=== PATIENT | female | born 1975 | race Caucasian/White ===

== ENCOUNTER 2019-11-06 14:29 | Inpatient (IN) ==
[2019-11-06] MEDS ORDERED: ALBUTEROL/IPRATROPIUM 3 ML NEB RESP TX STA (15:28)
[2019-11-06 15:39] LABS: Basophils # 0.1 10*3/uL (0.0-0.2); Basophils % 0.9 % (0.0-0.8); Eosinophils # 0.1 10*3/uL (0.0-0.87); Eosinophils % 1.3 % (0.00-10.9); Hematocrit 42.9 VOL% (35.7-47.0); Hemoglobin 14.8 GM/DL (12.0-16.0); Immature Granulocytes % 0.4 %; Immature Granulocytes Absolute 0.02 #; Lymphocytes # 1.7 10*3/uL (1.4-4.0); Mean Corpuscular HGB Conc 34.5 GM/DL (32-36); Mean Platelet Volume 8.4 FL (9.6-12.0); Neutrophils % 57.4 % (38.7-73.9); Platelet Count 261 T/CUMM (130-400); Red Blood Count 4.99 MC/CUMM (3.8-5.5); Red Cell Distribution Width 11.6 % (9.3-17.3); White Blood Count 5.3 T/CUMM (4-12)
[2019-11-06 15:47] LABS: Albumin 4.4 G/DL (3.4-5.0); Bilirubin,Total 0.8 MG/DL (0.2-1.0); Calcium 8.8 MG/DL (8.5-10.1); Osmolality,Calculated 269.8 MOS/KG (273-304); Total Protein 7.8 G/DL (6.4-8.3)
[2019-11-06] MEDS ORDERED: DEXTROSE 50% 25 GM/50 ML VIAL IV PRN (18:32)
[2019-11-06] MEDS: IPRATROPIUM 500 MCG/2.5 ML NEB RESP TX SCH ×2 (19:52→23:32)
[2019-11-06] MEDS: LEVALBUTEROL 1.25 MG/3 ML NEB RESP TX SCH ×2 (19:52→23:32)
[2019-11-06] MEDS: RACEPINEPHRINE 0.5 ML NEB RESP TX SCH ×2 (19:52→23:32)
[2019-11-06] MEDS ORDERED: GLUCAGON 1 MG VIAL IM PRN (20:00)
[2019-11-06] MEDS ORDERED: MAGNESIUM SULF RIDER 2 GM in PREMIX 1 EACH IV ONE (20:00)
[2019-11-06] MEDS: methylPREDNISolone SOD SUC 40 MG/1 ML VIAL IV SCH (21:49)
[2019-11-06] MEDS: ENOXAPARIN 40 MG/0.4 ML SYRINGE SUBCUT SCH (21:49)
[2019-11-06] MEDS: cefTRIAXone 2,000 MG in SYRINGE 1 EACH IV SCH (21:49)
[2019-11-06] MEDS: CLINDAMYCIN INJ 600 MG in PREMIX 1 EACH IV SCH (21:50)
[2019-11-07] MEDS: RACEPINEPHRINE 0.5 ML NEB RESP TX SCH ×6 (03:26→23:50)
[2019-11-07] MEDS: IPRATROPIUM 500 MCG/2.5 ML NEB RESP TX SCH ×6 (03:26→23:50)
[2019-11-07] MEDS: LEVALBUTEROL 1.25 MG/3 ML NEB RESP TX SCH ×6 (03:26→23:50)
[2019-11-07] MEDS: CLINDAMYCIN INJ 600 MG in PREMIX 1 EACH IV SCH (05:00)
[2019-11-07] MEDS: methylPREDNISolone SOD SUC 40 MG/1 ML VIAL IV SCH ×3 (05:00→21:02)
[2019-11-07] MEDS: tiZANidine 4 MG TABLET PO PRN ×3 (06:28→23:13)
[2019-11-07] MEDS: PANTOPRAZOLE 40 MG VIAL IV SCH (09:01)
[2019-11-07] MEDS: cefTRIAXone 2,000 MG in SYRINGE 1 EACH IV SCH (21:02)
[2019-11-07] MEDS: ENOXAPARIN 40 MG/0.4 ML SYRINGE SUBCUT SCH (21:03)
[2019-11-07] MEDS: FLUTICASONE 220 MCG/PUFF INHALER 12 GM INH SCH (21:03)
[2019-11-07] MEDS: fentaNYL 25 MCG/HR PATCH TRANSDERM SCH (21:10)
[2019-11-07] MEDS: oxyCODONE/ACETAMINOPHEN 5-325 MG TABLET PO PRN (21:18)
[2019-11-08] MEDS: IPRATROPIUM 500 MCG/2.5 ML NEB RESP TX SCH ×5 (03:41→19:35)
[2019-11-08] MEDS: RACEPINEPHRINE 0.5 ML NEB RESP TX SCH ×3 (03:41→10:38)
[2019-11-08] MEDS: LEVALBUTEROL 1.25 MG/3 ML NEB RESP TX SCH ×5 (03:42→19:35)
[2019-11-08] MEDS: methylPREDNISolone SOD SUC 40 MG/1 ML VIAL IV SCH ×3 (04:07→20:13)
[2019-11-08] MEDS: PANTOPRAZOLE 40 MG VIAL IV SCH (09:39)
[2019-11-08] MEDS: FLUTICASONE 220 MCG/PUFF INHALER 12 GM INH SCH ×2 (09:41→20:15)
[2019-11-08] MEDS: oxyCODONE/ACETAMINOPHEN 5-325 MG TABLET PO PRN ×2 (12:15→20:22)
[2019-11-08] MEDS: cefTRIAXone 2,000 MG in SYRINGE 1 EACH IV SCH (20:13)
[2019-11-08] MEDS: ENOXAPARIN 40 MG/0.4 ML SYRINGE SUBCUT SCH (20:14)
[2019-11-08] MEDS: tiZANidine 4 MG TABLET PO PRN (20:22)
[2019-11-09] MEDS: LEVALBUTEROL 1.25 MG/3 ML NEB RESP TX SCH ×6 (00:48→20:45)
[2019-11-09] MEDS: IPRATROPIUM 500 MCG/2.5 ML NEB RESP TX SCH ×6 (00:48→20:45)
[2019-11-09] MEDS: methylPREDNISolone SOD SUC 40 MG/1 ML VIAL IV SCH ×3 (04:06→20:26)
[2019-11-09] MEDS: PANTOPRAZOLE 40 MG VIAL IV SCH (08:27)
[2019-11-09] MEDS: FLUTICASONE 220 MCG/PUFF INHALER 12 GM INH SCH ×2 (08:31→20:45)
[2019-11-09] MEDS: oxyCODONE/ACETAMINOPHEN 5-325 MG TABLET PO PRN (18:00)
[2019-11-09] MEDS: cefTRIAXone 2,000 MG in SYRINGE 1 EACH IV SCH (20:25)
[2019-11-09] MEDS: tiZANidine 4 MG TABLET PO PRN (20:27)
[2019-11-10] MEDS: IPRATROPIUM 500 MCG/2.5 ML NEB RESP TX SCH ×7 (00:58→23:34)
[2019-11-10] MEDS: LEVALBUTEROL 1.25 MG/3 ML NEB RESP TX SCH ×7 (00:58→23:30)
[2019-11-10] MEDS: methylPREDNISolone SOD SUC 40 MG/1 ML VIAL IV SCH ×3 (03:28→20:32)
[2019-11-10] MEDS: fentaNYL 25 MCG/HR PATCH TRANSDERM SCH (09:18)
[2019-11-10] MEDS: PANTOPRAZOLE 40 MG VIAL IV SCH (09:19)
[2019-11-10] MEDS: FLUTICASONE 220 MCG/PUFF INHALER 12 GM INH SCH ×2 (09:25→20:37)
[2019-11-10] MEDS ORDERED: BENZOCAINE 20% SPRAY 57 GM CAN TOP ONE (11:32)
[2019-11-10] MEDS ORDERED: LIDOCAINE/EPINEPHR/TETRACAINE 3 ML SYRINGE TOP ONE (12:00)
[2019-11-10] MEDS: oxyCODONE/ACETAMINOPHEN 5-325 MG TABLET PO PRN (18:15)
[2019-11-10] MEDS: cefTRIAXone 2,000 MG in SYRINGE 1 EACH IV SCH (20:32)
[2019-11-10] MEDS: tiZANidine 4 MG TABLET PO PRN (20:32)
[2019-11-11] MEDS: IPRATROPIUM 500 MCG/2.5 ML NEB RESP TX SCH ×5 (03:07→19:44)
[2019-11-11] MEDS: LEVALBUTEROL 1.25 MG/3 ML NEB RESP TX SCH ×5 (03:07→19:44)
[2019-11-11] MEDS: methylPREDNISolone SOD SUC 40 MG/1 ML VIAL IV SCH ×3 (04:27→20:50)
[2019-11-11] MEDS: FLUTICASONE 220 MCG/PUFF INHALER 12 GM INH SCH (08:31)
[2019-11-11] MEDS: PANTOPRAZOLE 40 MG VIAL IV SCH (08:32)
[2019-11-11] MEDS ORDERED: LEVALBUTEROL 1.25 MG/3 ML NEB RESP TX PRN (09:37)
[2019-11-11] MEDS: tiZANidine 4 MG TABLET PO PRN ×2 (13:50→22:07)
[2019-11-11] MEDS: oxyCODONE/ACETAMINOPHEN 5-325 MG TABLET PO PRN (13:50)
[2019-11-11] MEDS: cefTRIAXone 2,000 MG in SYRINGE 1 EACH IV SCH (20:55)
[2019-11-12] MEDS: IPRATROPIUM 500 MCG/2.5 ML NEB RESP TX SCH ×7 (00:02→23:30)
[2019-11-12] MEDS: LEVALBUTEROL 1.25 MG/3 ML NEB RESP TX SCH ×7 (00:02→23:30)
[2019-11-12] MEDS: methylPREDNISolone SOD SUC 40 MG/1 ML VIAL IV SCH ×3 (03:22→20:32)
[2019-11-12 05:31] LABS: Basophils % 0.3 % (0.0-0.8); Hematocrit 41.8 VOL% (35.7-47.0); Hemoglobin 13.9 GM/DL (12.0-16.0); Immature Granulocytes % 4.9 %; Immature Granulocytes Absolute 0.63 #; Lymphocytes % 7.6 % (21.3-54.2); Mean Corpuscular HGB Conc 33.3 GM/DL (32-36); Mean Corpuscular Volume 88.4 FL (87-102); Mean Platelet Volume 8.3 FL (9.6-12.0); Monocytes % 4.2 % (1.7-12.7); Platelet Count 254 T/CUMM (130-400); Red Blood Count 4.73 MC/CUMM (3.8-5.5); Red Cell Distribution Width 11.3 % (9.3-17.3); White Blood Count 12.8 T/CUMM (4-12)
[2019-11-12 05:55] LABS: Lymphocytes 11 % (20-55); Platelet Estimate Adequate; Segmented Neutrophils 86 % (50-85); Total Cells Counted 100
[2019-11-12 05:56] LABS: Hypochromasia 1+; Microcytosis 1+
[2019-11-12 06:01] LABS: Calcium 8.6 MG/DL (8.5-10.1); Osmolality,Calculated 270.2 MOS/KG (273-304)
[2019-11-12] MEDS: PANTOPRAZOLE 40 MG VIAL IV SCH (08:20)
[2019-11-12] MEDS: oxyCODONE/ACETAMINOPHEN 5-325 MG TABLET PO PRN ×2 (08:21→20:31)
[2019-11-12] MEDS: FLUTICASONE 220 MCG/PUFF INHALER 12 GM INH SCH ×2 (08:28)
[2019-11-12] MEDS: tiZANidine 4 MG TABLET PO PRN ×2 (12:00→20:32)
[2019-11-12] MEDS: cefTRIAXone 2,000 MG in SYRINGE 1 EACH IV SCH (20:37)
[2019-11-13] MEDS: LEVALBUTEROL 1.25 MG/3 ML NEB RESP TX SCH ×6 (04:00→23:23)
[2019-11-13] MEDS: IPRATROPIUM 500 MCG/2.5 ML NEB RESP TX SCH ×4 (04:00→13:58)
[2019-11-13] MEDS: methylPREDNISolone SOD SUC 40 MG/1 ML VIAL IV SCH ×3 (04:01→20:18)
[2019-11-13] MEDS: PANTOPRAZOLE 40 MG VIAL IV SCH (08:23)
[2019-11-13] MEDS: fentaNYL 25 MCG/HR PATCH TRANSDERM SCH (08:23)
[2019-11-13] MEDS ORDERED: FLUTICASONE 220 MCG/PUFF INHALER 12 GM INH SCH ×2 (08:39→09:00)
[2019-11-13] MEDS: FLUTICASONE 220 MCG/PUFF INHALER 12 GM INH SCH (08:51)
[2019-11-13] MEDS: oxyCODONE/ACETAMINOPHEN 5-325 MG TABLET PO PRN ×2 (09:37→20:28)
[2019-11-13] MEDS: tiZANidine 4 MG TABLET PO PRN ×2 (09:46→20:28)
[2019-11-13] MEDS ORDERED: MAGNESIUM HYDROXIDE SUSP 30 ML UDCUP PO PRN (12:31)
[2019-11-13] MEDS: POLYETHYLENE GLYCOL POWDER 17 GM PACK PO SCH (13:51)
[2019-11-13] MEDS: DOCUSATE SODIUM 100 MG CAPSULE PO SCH ×2 (13:51→20:18)
[2019-11-13] MEDS: MONTELUKAST 10 MG TABLET PO SCH (17:06)
[2019-11-13] MEDS: BUDESONIDE/FORMOTEROL 160-4.5 INHALER 6 GM INH SCH ×2 (20:20→20:28)
[2019-11-14] MEDS: LEVALBUTEROL 1.25 MG/3 ML NEB RESP TX SCH ×6 (03:45→23:50)
[2019-11-14] MEDS: MONTELUKAST 10 MG TABLET PO SCH (09:05)
[2019-11-14] MEDS: BUDESONIDE/FORMOTEROL 160-4.5 INHALER 6 GM INH SCH ×2 (09:05→20:58)
[2019-11-14] MEDS: tiZANidine 4 MG TABLET PO PRN ×2 (09:05→20:56)
[2019-11-14] MEDS: PANTOPRAZOLE 40 MG VIAL IV SCH (09:05)
[2019-11-14] MEDS: oxyCODONE/ACETAMINOPHEN 5-325 MG TABLET PO PRN ×2 (09:05→20:57)
[2019-11-14] MEDS: DOCUSATE SODIUM 100 MG CAPSULE PO SCH ×2 (09:05→20:56)
[2019-11-14] MEDS: POLYETHYLENE GLYCOL POWDER 17 GM PACK PO SCH (09:05)
[2019-11-14] MEDS: methylPREDNISolone SOD SUC 40 MG/1 ML VIAL IV SCH ×2 (09:07→20:56)
[2019-11-14] MEDS ORDERED: LACTULOSE 20 GM/30 ML UDCUP PO ONE (12:03)
[2019-11-15] MEDS: LEVALBUTEROL 1.25 MG/3 ML NEB RESP TX SCH ×3 (03:40→11:58)
[2019-11-15] MEDS: POLYETHYLENE GLYCOL POWDER 17 GM PACK PO SCH (09:35)
[2019-11-15] MEDS: MONTELUKAST 10 MG TABLET PO SCH (09:35)
[2019-11-15] MEDS: DOCUSATE SODIUM 100 MG CAPSULE PO SCH (09:35)
[2019-11-15] MEDS: BUDESONIDE/FORMOTEROL 160-4.5 INHALER 6 GM INH SCH (09:36)
[2019-11-15] MEDS: methylPREDNISolone SOD SUC 40 MG/1 ML VIAL IV SCH (09:36)
[2019-11-15] MEDS ORDERED: ACETAMINOPHEN 325 MG TABLET PO PRN (09:51)
[2019-11-15 11:41] VITALS: BP 136/95
== END 2019-11-15 14:39 | disposition home or self-care (01) | DRG 202 ==
LOC: N.ED 14:29 → N.EDINP 14:29 → N.TELEN 20:49 → N.4E 11-11 13:30
PROVIDERS: ADMIT Internal Medicine; ATTEND Internal Medicine

== ENCOUNTER 2019-12-09 16:26 | Inpatient (IN) ==
[2019-12-09] MEDS ORDERED: methylPREDNISolone SOD SUC 125 MG/2 ML VIAL IV STA (17:08)
[2019-12-09] MEDS ORDERED: ALBUTEROL 2.5 MG/3 ML NEB RESP TX STA (17:08)
[2019-12-09 17:29] LABS: Basophils % 0.8 % (0.0-0.8); Eosinophils # 0.1 10*3/uL (0.0-0.87); Eosinophils % 1.2 % (0.00-10.9); Hematocrit 39.6 VOL% (35.7-47.0); Hemoglobin 13.5 GM/DL (12.0-16.0); Immature Granulocytes % 0.4 %; Immature Granulocytes Absolute 0.02 #; Lymphocytes # 1.2 10*3/uL (1.4-4.0); Lymphocytes % 23.8 % (21.3-54.2); Mean Corpuscular HGB Conc 34.1 GM/DL (32-36); Mean Corpuscular Volume 87.2 FL (87-102); Mean Platelet Volume 8.1 FL (9.6-12.0); Monocytes % 6.9 % (1.7-12.7); Neutrophils % 66.9 % (38.7-73.9); Platelet Count 239 T/CUMM (130-400); Red Blood Count 4.54 MC/CUMM (3.8-5.5); Red Cell Distribution Width 11.9 % (9.3-17.3); White Blood Count 5.2 T/CUMM (4-12)
[2019-12-09 17:47] LABS: Calcium 8.8 MG/DL (8.5-10.1); Osmolality,Calculated 275.4 MOS/KG (273-304)
[2019-12-09] MEDS ORDERED: LORazepam 2 MG/1 ML VIAL IV STA ×2 (18:20→19:08)
[2019-12-09] MEDS ORDERED: LORazepam 2 MG/1 ML VIAL ONE (18:22)
[2019-12-09] MEDS ORDERED: LACTATED RINGERS 1,000 ML IV ONE (18:27)
[2019-12-09] MEDS ORDERED: METOPROLOL TARTRATE 5 MG/5 ML VIAL IV STA (19:28)
[2019-12-09] MEDS ORDERED: METOPROLOL TARTRATE 25 MG TABLET PO STA (19:32)
[2019-12-09] MEDS ORDERED: POTASSIUM CHLORIDE 20 MEQ TABLET PO STA (19:54)
[2019-12-09] MEDS ORDERED: MAGNESIUM SULF RIDER 2 GM in PREMIX 1 EACH IV ONE (20:54)
[2019-12-09] MEDS ORDERED: tiZANidine 4 MG TABLET PO PRN (20:56)
[2019-12-09] MEDS ORDERED: Dextroamphetamine-Amphetamine 30 MG PO PRN (20:56)
[2019-12-09] MEDS ORDERED: POLYETHYLENE GLYCOL POWDER 17 GM PACK PO PRN (20:56)
[2019-12-09] MEDS ORDERED: ACETAMINOPHEN 325 MG TABLET PO PRN (21:02)
[2019-12-09] MEDS ORDERED: MAGNESIUM SULF RIDER 2 GM in PREMIX 1 EACH IV PRN (21:06)
[2019-12-09] MEDS ORDERED: MAGNESIUM SULF RIDER 4 GM in PREMIX 1 EACH IV PRN (21:06)
[2019-12-09] MEDS ORDERED: POTASSIUM CHLORIDE 20 MEQ TABLET PO PRN (21:06)
[2019-12-09] MEDS: ONDANSETRON 4 MG/2 ML VIAL IV PRN (23:55)
[2019-12-09] MEDS: oxyCODONE/ACETAMINOPHEN 5-325 MG TABLET PO PRN (23:55)
[2019-12-10] MEDS: SODIUM CHLORIDE 0.9% 1,000 ML IV SCH ×2 (00:21→12:35)
[2019-12-10] MEDS: methylPREDNISolone SOD SUC 125 MG/2 ML VIAL IV SCH ×3 (00:23→12:35)
[2019-12-10] MEDS: FAMOTIDINE 20 MG TABLET PO SCH (00:24)
[2019-12-10] MEDS: MONTELUKAST 10 MG TABLET PO SCH (00:24)
[2019-12-10] MEDS: BUDESONIDE/FORMOTEROL 160-4.5 INHALER 6 GM INH SCH ×2 (00:28→12:35)
[2019-12-10] MEDS: ENOXAPARIN 40 MG/0.4 ML SYRINGE SUBCUT SCH ×2 (00:28→23:31)
[2019-12-10] MEDS: DOCUSATE SODIUM 100 MG CAPSULE PO SCH ×2 (00:29→09:06)
[2019-12-10] MEDS: LEVALBUTEROL 1.25 MG/3 ML NEB RESP TX SCH ×6 (00:30→23:00)
[2019-12-10 06:00] LABS: Hematocrit 36.3 VOL% (35.7-47.0); Hemoglobin 12.3 GM/DL (12.0-16.0); Immature Granulocytes % 0.6 %; Immature Granulocytes Absolute 0.03 #; Lymphocytes # 0.3 10*3/uL (1.4-4.0); Lymphocytes % 5.9 % (21.3-54.2); Mean Corpuscular HGB Conc 33.9 GM/DL (32-36); Mean Corpuscular Volume 88.5 FL (87-102); Mean Platelet Volume 8.3 FL (9.6-12.0); Monocytes % 1.1 % (1.7-12.7); Neutrophils % 92.4 % (38.7-73.9); Platelet Count 189 T/CUMM (130-400); White Blood Count 5.2 T/CUMM (4-12)
[2019-12-10 06:22] LABS: Calcium 8.5 MG/DL (8.5-10.1); Osmolality,Calculated 279.4 MOS/KG (273-304)
[2019-12-10 06:33] LABS: Lymphocytes 11 % (20-55); Segmented Neutrophils 87 % (50-85); Total Cells Counted 100
[2019-12-10 06:34] LABS: Hypochromasia 1+; Microcytosis 1+; Ovalocytes Slight; Platelet Estimate Adequate
[2019-12-10] MEDS ORDERED: VILAZODONE 10 MG PO SCH (09:00)
[2019-12-10] MEDS: oxyCODONE/ACETAMINOPHEN 5-325 MG TABLET PO PRN ×2 (11:31→20:37)
[2019-12-10] MEDS: ONDANSETRON 4 MG/2 ML VIAL IV PRN ×3 (14:25→20:37)
[2019-12-10] MEDS ORDERED: PROMETHAZINE 25 MG TABLET PO ONE (17:11)
[2019-12-10] MEDS: KETOROLAC 30 MG/1 ML VIAL IV PRN (23:58)
[2019-12-11] MEDS: MONTELUKAST 10 MG TABLET PO SCH ×2 (00:17→20:54)
[2019-12-11] MEDS: FAMOTIDINE 20 MG TABLET PO SCH ×2 (00:17→20:54)
[2019-12-11] MEDS: DOCUSATE SODIUM 100 MG CAPSULE PO SCH ×4 (00:17→20:56)
[2019-12-11] MEDS: BUDESONIDE/FORMOTEROL 160-4.5 INHALER 6 GM INH SCH ×3 (00:18→23:54)
[2019-12-11] MEDS ORDERED: methylPREDNISolone SOD SUC 125 MG/2 ML VIAL IV SCH (00:30)
[2019-12-11] MEDS: ONDANSETRON 4 MG/2 ML VIAL IV PRN ×2 (00:42→19:30)
[2019-12-11] MEDS: SODIUM CHLORIDE 0.9% 1,000 ML IV SCH ×2 (00:43→14:39)
[2019-12-11 04:53] LABS: Basophils % 0.2 % (0.0-0.8); Hematocrit 35.1 VOL% (35.7-47.0); Hemoglobin 12.1 GM/DL (12.0-16.0); Immature Granulocytes % 0.6 %; Immature Granulocytes Absolute 0.07 #; Lymphocytes # 0.5 10*3/uL (1.4-4.0); Lymphocytes % 4.4 % (21.3-54.2); Mean Corpuscular HGB Conc 34.5 GM/DL (32-36); Mean Corpuscular Volume 88.9 FL (87-102); Mean Platelet Volume 8.5 FL (9.6-12.0); Monocytes % 2.6 % (1.7-12.7); Neutrophils % 92.2 % (38.7-73.9); Platelet Count 215 T/CUMM (130-400); Red Blood Count 3.95 MC/CUMM (3.8-5.5); Red Cell Distribution Width 12.4 % (9.3-17.3); White Blood Count 10.9 T/CUMM (4-12)
[2019-12-11 05:16] LABS: Hypochromasia 1+; Lymphocytes 8 % (20-55); Microcytosis 1+; Platelet Estimate Adequate; Segmented Neutrophils 90 % (50-85); Total Cells Counted 100
[2019-12-11 05:49] LABS: Calcium 8.1 MG/DL (8.5-10.1); Osmolality,Calculated 277.4 MOS/KG (273-304)
[2019-12-11] MEDS: LEVALBUTEROL 1.25 MG/3 ML NEB RESP TX SCH (07:13)
[2019-12-11] MEDS: predniSONE 20 MG TABLET PO SCH (11:19)
[2019-12-11] MEDS: CLORAZEPATE 7.5 MG TABLET PO SCH ×2 (14:39→20:53)
[2019-12-11] MEDS: KETOROLAC 30 MG/1 ML VIAL IV PRN (16:31)
[2019-12-11] MEDS: ENOXAPARIN 40 MG/0.4 ML SYRINGE SUBCUT SCH (20:51)
[2019-12-12] MEDS: LEVALBUTEROL 1.25 MG/3 ML NEB RESP TX PRN ×2 (00:14→06:08)
[2019-12-12] MEDS: SODIUM CHLORIDE 0.9% 1,000 ML IV SCH (02:30)
[2019-12-12 07:48] VITALS: BP 99/62
[2019-12-12 07:58] LABS: Basophils % 0.3 % (0.0-0.8); Eosinophils % 0.3 % (0.00-10.9); Hematocrit 34.1 VOL% (35.7-47.0); Hemoglobin 11.3 GM/DL (12.0-16.0); Immature Granulocytes % 1.5 %; Immature Granulocytes Absolute 0.09 #; Lymphocytes # 1.8 10*3/uL (1.4-4.0); Lymphocytes % 29.7 % (21.3-54.2); Mean Corpuscular HGB Conc 33.1 GM/DL (32-36); Mean Corpuscular Volume 90.5 FL (87-102); Mean Platelet Volume 8.2 FL (9.6-12.0); Monocytes % 9.5 % (1.7-12.7); Neutrophils % 58.7 % (38.7-73.9); Platelet Count 165 T/CUMM (130-400); Red Blood Count 3.77 MC/CUMM (3.8-5.5); Red Cell Distribution Width 12.5 % (9.3-17.3)
[2019-12-12 08:18] LABS: Calcium 7.8 MG/DL (8.5-10.1); Osmolality,Calculated 278.3 MOS/KG (273-304)
[2019-12-12] MEDS: predniSONE 20 MG TABLET PO SCH (08:56)
[2019-12-12] MEDS: CLORAZEPATE 7.5 MG TABLET PO SCH (08:56)
[2019-12-12] MEDS: DOCUSATE SODIUM 100 MG CAPSULE PO SCH (08:56)
[2019-12-12] MEDS: BUDESONIDE/FORMOTEROL 160-4.5 INHALER 6 GM INH SCH (10:52)
[2019-12-16 15:11] LABS: Antinuclear Ab, S < 0.1 U
== END 2019-12-12 11:50 | disposition home or self-care (01) | DRG 203 ==
LOC: N.ED 16:26 → N.EDINP 16:26 → N.TELEN 23:15
PROVIDERS: ADMIT Internal Medicine; ATTEND Internal Medicine

== ENCOUNTER 2020-03-05 08:33 | Inpatient (IN) ==
[2020-03-05] MEDS ORDERED: VANCOMYCIN INJ 1,000 MG in SODIUM CHLORIDE 0.9% 250 ML IV STA (08:56)
[2020-03-05] MEDS ORDERED: SODIUM CHLORIDE 0.9% 1,550 ML IV ONE (08:56)
[2020-03-05] MEDS ORDERED: PIPERACILLIN/TAZOBACTAM 3,375 MG in SODIUM CHLORIDE 0.9% 100 ML IV STA (08:57)
[2020-03-05] MEDS ORDERED: PIPERACILLIN/TAZOBACTAM 3,375 MG VIAL IV ONE (09:41)
[2020-03-05 09:42] LABS: Basophils # 0.1 10*3/uL (0.0-0.2); Basophils % 1.1 % (0.0-0.8); Eosinophils # 0.3 10*3/uL (0.0-0.87); Eosinophils % 6.1 % (0.00-10.9); Hematocrit 40.4 VOL% (35.7-47.0); Hemoglobin 14.5 GM/DL (12.0-16.0); Immature Granulocytes % 0.4 %; Immature Granulocytes Absolute 0.02 #; Lymphocytes # 1.5 10*3/uL (1.4-4.0); Mean Corpuscular HGB Conc 35.9 GM/DL (32-36); Mean Corpuscular Volume 84.2 FL (87-102); Mean Platelet Volume 8.3 FL (9.6-12.0); Monocytes % 11.1 % (1.7-12.7); Neutrophils % 54.3 % (38.7-73.9); Platelet Count 216 T/CUMM (130-400); White Blood Count 5.4 T/CUMM (4-12)
[2020-03-05 09:59] LABS: INR 0.9; PT Patient Result 10.1 SECS (9.8-11.9); Partial Thromboplastin Time 26.5 SECS (23.9-33.8)
[2020-03-05 10:04] LABS: Alanine Aminotransferase 12 U/L (13-56); Albumin 3.8 G/DL (3.4-5.0); Alkaline Phosphatase 49 U/L (45-117); Aspartate Amino Transferase 12 U/L (0-37); Bilirubin,Total < 0.39 MG/DL (0.2-1.0); Blood Urea Nitrogen 7 MG/DL (7-18); Calcium 8.5 MG/DL (8.5-10.1); Estimated Glom Filtration Rate 94 ML/MIN; Glucose 96 MG/DL (74-106); Total Protein 6.9 G/DL (6.4-8.3)
[2020-03-05 10:38] LABS: Bilirubin,Urine Negative (Negative); Blood, Urine Negative (Negative); Glucose,Urine (UA) Negative (Negative); Ketones,Urine Negative (Negative); Mucus,Urine Occasional /LPF (Occasional); Nitrite,Urine Negative (Negative); Protein,Urine Negative; RBC,Urine 1 /HPF (0-4); Squamous Epithelial Cell,Urine Occasional /HPF (0-10); Urine Appearance CLEAR (Clear); Urine Color Straw (Yellow); Urine Specific Gravity 1.009 (1.001-1.035); Urine Urobilinogen < 2.0 EU/DL (0.2-1.0); WBC,Urine <1 /HPF (0-6)
[2020-03-05] MEDS ORDERED: MUPIROCIN 2% OINT 22 GM TUBE TOP STA (10:42)
[2020-03-05] MEDS ORDERED: GLUCAGON 1 MG VIAL IM PRN (10:43)
[2020-03-05] MEDS ORDERED: DEXTROSE 50% 25 GM/50 ML VIAL IV PRN (10:43)
[2020-03-05] MEDS ORDERED: POLYETHYLENE GLYCOL POWDER 17 GM PACK PO PRN (11:04)
[2020-03-05] MEDS ORDERED: PROMETHAZINE 25 MG/1 ML VIAL IM ONE (12:42)
[2020-03-05] MEDS: ENOXAPARIN 40 MG/0.4 ML SYRINGE SUBCUT SCH (12:59)
[2020-03-05] MEDS ORDERED: CLORAZEPATE 3.75 MG TABLET PO PRN (13:22)
[2020-03-05] MEDS ORDERED: INFLUENZA VIRUS VACCINE 0.5 ML SYRINGE IM ONE (13:23)
[2020-03-05] MEDS: VANCOMYCIN INJ 750 MG in SODIUM CHLORIDE 0.9% 250 ML IV SCH (15:49)
[2020-03-05] MEDS ORDERED: ACETAMINOPHEN 325 MG/10.15 ML UDCUP PO PRN (16:38)
[2020-03-05] MEDS: ALBUTEROL 2.5 MG/3 ML NEB RESP TX SCH ×2 (18:29→19:51)
[2020-03-05] MEDS: oxyCODONE/ACETAMINOPHEN 5-325 MG TABLET PO PRN (21:14)
[2020-03-05] MEDS: tiZANidine 4 MG TABLET PO PRN (21:15)
[2020-03-05] MEDS: BUDESONIDE/FORMOTEROL 160-4.5 INHALER 6 GM INH SCH (21:15)
[2020-03-05] MEDS: MELATONIN 3 MG TABLET PO SCH (21:15)
[2020-03-05] MEDS: DOCUSATE SODIUM 100 MG CAPSULE PO SCH (21:36)
[2020-03-06] MEDS: ALBUTEROL 2.5 MG/3 ML NEB RESP TX SCH ×4 (01:25→19:09)
[2020-03-06] MEDS: VANCOMYCIN INJ 750 MG in SODIUM CHLORIDE 0.9% 250 ML IV SCH ×2 (03:20→14:22)
[2020-03-06 05:51] LABS: Basophils # 0.1 10*3/uL (0.0-0.2); Basophils % 0.9 % (0.0-0.8); Eosinophils # 0.4 10*3/uL (0.0-0.87); Eosinophils % 7.7 % (0.00-10.9); Hematocrit 36.5 VOL% (35.7-47.0); Hemoglobin 12.7 GM/DL (12.0-16.0); Immature Granulocytes % 0.4 %; Immature Granulocytes Absolute 0.02 #; Lymphocytes # 1.9 10*3/uL (1.4-4.0); Lymphocytes % 35.5 % (21.3-54.2); Mean Corpuscular HGB Conc 34.8 GM/DL (32-36); Mean Corpuscular Volume 85.5 FL (87-102); Mean Platelet Volume 8.4 FL (9.6-12.0); Monocytes % 10.7 % (1.7-12.7); Neutrophils % 44.8 % (38.7-73.9); Platelet Count 182 T/CUMM (130-400); Red Blood Count 4.27 MC/CUMM (3.8-5.5); Red Cell Distribution Width 12.2 % (9.3-17.3); White Blood Count 5.4 T/CUMM (4-12)
[2020-03-06 06:29] LABS: Calcium 7.9 MG/DL (8.5-10.1); Osmolality,Calculated 280.1 MOS/KG (273-304)
[2020-03-06] MEDS ORDERED: fentaNYL 25 MCG/HR PATCH TRANSDERM SCH (09:00)
[2020-03-06] MEDS: BUDESONIDE/FORMOTEROL 160-4.5 INHALER 6 GM INH SCH ×2 (09:05→21:02)
[2020-03-06] MEDS: ESCITALOPRAM 10 MG TABLET PO SCH (09:06)
[2020-03-06] MEDS: DOCUSATE SODIUM 100 MG CAPSULE PO SCH ×2 (09:06→21:02)
[2020-03-06] MEDS: oxyCODONE/ACETAMINOPHEN 5-325 MG TABLET PO PRN (09:11)
[2020-03-06] MEDS: tiZANidine 4 MG TABLET PO PRN ×2 (09:12→21:07)
[2020-03-06] MEDS: ENOXAPARIN 40 MG/0.4 ML SYRINGE SUBCUT SCH (10:57)
[2020-03-06] MEDS: MELATONIN 3 MG TABLET PO SCH (21:02)
[2020-03-07] MEDS: ALBUTEROL 2.5 MG/3 ML NEB RESP TX SCH ×2 (00:42→07:15)
[2020-03-07] MEDS: VANCOMYCIN INJ 750 MG in SODIUM CHLORIDE 0.9% 250 ML IV SCH (03:10)
[2020-03-07 05:53] LABS: Basophils % 0.9 % (0.0-0.8); Eosinophils # 0.3 10*3/uL (0.0-0.87); Eosinophils % 6.1 % (0.00-10.9); Hematocrit 37.4 VOL% (35.7-47.0); Hemoglobin 12.8 GM/DL (12.0-16.0); Immature Granulocytes % 0.4 %; Immature Granulocytes Absolute 0.02 #; Lymphocytes # 1.7 10*3/uL (1.4-4.0); Lymphocytes % 37.5 % (21.3-54.2); Mean Corpuscular HGB Conc 34.2 GM/DL (32-36); Mean Platelet Volume 8.6 FL (9.6-12.0); Monocytes % 10.5 % (1.7-12.7); Neutrophils % 44.6 % (38.7-73.9); Platelet Count 177 T/CUMM (130-400); Red Cell Distribution Width 12.2 % (9.3-17.3); White Blood Count 4.6 T/CUMM (4-12)
[2020-03-07 06:06] LABS: Calcium 8.2 MG/DL (8.5-10.1); Osmolality,Calculated 281.1 MOS/KG (273-304)
[2020-03-07 08:03] VITALS: BP 86/40
[2020-03-07] MEDS: oxyCODONE/ACETAMINOPHEN 5-325 MG TABLET PO PRN (08:58)
[2020-03-07] MEDS: BUDESONIDE/FORMOTEROL 160-4.5 INHALER 6 GM INH SCH (08:59)
[2020-03-07] MEDS: DOCUSATE SODIUM 100 MG CAPSULE PO SCH (08:59)
[2020-03-07] MEDS: ESCITALOPRAM 10 MG TABLET PO SCH (08:59)
[2020-03-07] MEDS: tiZANidine 4 MG TABLET PO PRN (08:59)
== END 2020-03-07 11:34 | disposition home or self-care (01) | DRG 603 ==
LOC: N.ED 08:33 → SUATTDRO 10:43 → N.EDINP 10:43 → N.5E 12:40
PROVIDERS: ADMIT Internal Medicine; ATTEND Internal Medicine

== ENCOUNTER 2020-08-11 12:47 | Observation (INO) ==
[2020-08-11 13:18] LABS: Basophils # 0.1 10*3/uL (0.0-0.2); Basophils % 0.9 % (0.0-0.8); Eosinophils # 0.1 10*3/uL (0.0-0.87); Eosinophils % 0.9 % (0.00-10.9); Hematocrit 41.4 VOL% (35.7-47.0); Hemoglobin 14.5 GM/DL (12.0-16.0); Immature Granulocytes % 0.3 %; Immature Granulocytes Absolute 0.02 #; Lymphocytes # 1.4 10*3/uL (1.4-4.0); Lymphocytes % 20.6 % (21.3-54.2); Mean Corpuscular Volume 85.9 FL (87-102); Mean Platelet Volume 8.3 FL (9.6-12.0); Neutrophils % 71.3 % (38.7-73.9); Platelet Count 307 T/CUMM (130-400); Red Blood Count 4.82 MC/CUMM (3.8-5.5); Red Cell Distribution Width 11.8 % (9.3-17.3); White Blood Count 6.7 T/CUMM (4-12)
[2020-08-11 13:31] LABS: Albumin 4.4 G/DL (3.4-5.0); Bilirubin,Total 0.6 MG/DL (0.2-1.0); Calcium 8.6 MG/DL (8.5-10.1); Osmolality,Calculated 271.8 MOS/KG (273-304); Potassium 4.1 MMOL/L (3.5-5.1); Total Protein 6.9 G/DL (6.4-8.2)
[2020-08-11 14:27] LABS: Thyroid Stimulating Hormone 0.304 uIU/ml (0.358-3.74)
[2020-08-11 14:53] LABS: Barbiturates Screen,Urine Negative (Negative); Benzodiazepines Screen,Urine Negative (Negative); Cannabinoid Screen,Urine Negative (Negative); Opiate Screen,Urine Positive (Negative); Phencyclidine Screen,Urine Negative (Negative)
[2020-08-11] MEDS ORDERED: ONDANSETRON 4 MG/2 ML VIAL IV PRN (17:00)
[2020-08-11] MEDS ORDERED: DEXTROSE 50% 25 GM/50 ML VIAL IV PRN (17:00)
[2020-08-11] MEDS ORDERED: ACETAMINOPHEN 325 MG TABLET PO PRN (17:00)
[2020-08-11] MEDS ORDERED: GLUCAGON 1 MG VIAL IM PRN (17:00)
[2020-08-11] MEDS ORDERED: hydrALAZINE 20 MG/1 ML VIAL IV PRN (17:00)
[2020-08-11] MEDS ORDERED: tiZANidine 4 MG TABLET PO PRN (17:02)
[2020-08-11 17:18] LABS: Risk Ratio 2.53; VLDL CHOLESTEROL 11.4 MG/DL
[2020-08-11] MEDS: BUDESONIDE/FORMOTEROL 160-4.5 INHALER 6 GM INH SCH (21:36)
[2020-08-11] MEDS: DOCUSATE SODIUM 100 MG CAPSULE PO SCH (21:37)
[2020-08-11] MEDS: ESCITALOPRAM 10 MG TABLET PO SCH (21:37)
[2020-08-11] MEDS: ENOXAPARIN 40 MG/0.4 ML SYRINGE SUBCUT SCH (21:39)
[2020-08-12 03:52] LABS: Basophils # 0.1 10*3/uL (0.0-0.2); Basophils % 0.9 % (0.0-0.8); Eosinophils # 0.3 10*3/uL (0.0-0.87); Eosinophils % 3.7 % (0.00-10.9); Hematocrit 36.9 VOL% (35.7-47.0); Hemoglobin 13.1 GM/DL (12.0-16.0); Immature Granulocytes % 0.4 %; Immature Granulocytes Absolute 0.03 #; Lymphocytes # 2.6 10*3/uL (1.4-4.0); Lymphocytes % 37.8 % (21.3-54.2); Mean Corpuscular HGB Conc 35.5 GM/DL (32-36); Mean Corpuscular Volume 84.6 FL (87-102); Mean Platelet Volume 8.4 FL (9.6-12.0); Monocytes % 8.9 % (1.7-12.7); Neutrophils % 48.3 % (38.7-73.9); Platelet Count 256 T/CUMM (130-400); Red Blood Count 4.36 MC/CUMM (3.8-5.5); Red Cell Distribution Width 11.7 % (9.3-17.3); White Blood Count 6.7 T/CUMM (4-12)
[2020-08-12 04:22] LABS: Calcium 8.3 MG/DL (8.5-10.1); Osmolality,Calculated 273.7 MOS/KG (273-304); Potassium 3.7 MMOL/L (3.5-5.1)
[2020-08-12] MEDS: DOCUSATE SODIUM 100 MG CAPSULE PO SCH ×2 (08:15→21:19)
[2020-08-12] MEDS ORDERED: SCOPOLAMINE 1.5 MG PATCH TRANSDERM SCH (11:00)
[2020-08-12] MEDS: oxyCODONE/ACETAMINOPHEN 5-325 MG TABLET PO PRN (12:45)
[2020-08-12] MEDS: ENOXAPARIN 40 MG/0.4 ML SYRINGE SUBCUT SCH (17:40)
[2020-08-12] MEDS: ESCITALOPRAM 10 MG TABLET PO SCH (21:19)
[2020-08-12] MEDS: methIMAzole 5 MG TABLET PO SCH (21:19)
[2020-08-13] MEDS: BUDESONIDE/FORMOTEROL 160-4.5 INHALER 6 GM INH SCH (00:23)
[2020-08-13 05:42] LABS: Basophils # 0.1 10*3/uL (0.0-0.2); Basophils % 0.8 % (0.0-0.8); Eosinophils # 0.2 10*3/uL (0.0-0.87); Eosinophils % 3.3 % (0.00-10.9); Hematocrit 40.5 VOL% (35.7-47.0); Hemoglobin 14.4 GM/DL (12.0-16.0); Immature Granulocytes % 0.5 %; Immature Granulocytes Absolute 0.03 #; Lymphocytes # 1.4 10*3/uL (1.4-4.0); Lymphocytes % 20.9 % (21.3-54.2); Mean Corpuscular HGB Conc 35.6 GM/DL (32-36); Mean Corpuscular Volume 83.9 FL (87-102); Mean Platelet Volume 8.4 FL (9.6-12.0); Monocytes % 9.8 % (1.7-12.7); Neutrophils % 64.7 % (38.7-73.9); Platelet Count 249 T/CUMM (130-400); Red Blood Count 4.83 MC/CUMM (3.8-5.5); Red Cell Distribution Width 11.6 % (9.3-17.3); White Blood Count 6.7 T/CUMM (4-12)
[2020-08-13 06:03] LABS: Calcium 8.9 MG/DL (8.5-10.1); Potassium 4.5 MMOL/L (3.5-5.1)
[2020-08-13] MEDS: DOCUSATE SODIUM 100 MG CAPSULE PO SCH (08:53)
[2020-08-13] MEDS: methIMAzole 5 MG TABLET PO SCH (08:54)
[2020-08-13 12:04] VITALS: BP 113/75
[2020-08-13] MEDS: oxyCODONE/ACETAMINOPHEN 5-325 MG TABLET PO PRN (12:50)
== END 2020-08-13 14:30 | disposition home or self-care (01) ==
LOC: N.ED 12:47 → N.EDINP 12:47 → N.TELEN 17:29
PROVIDERS: ADMIT Internal Medicine Geriatric Medicine; ATTEND Internal Medicine Geriatric Medicine